=== PATIENT | female | born 1970 | race African-American/Black ===

== ENCOUNTER 2017-08-02 11:41 | Emergency (ER) | payer MEDICARE ==
[~2017-08-02 11:41] MED LIST: CLOB10TA PO
[2017-08-02 12:15] VITALS: BP 128/84
[2017-08-02] MEDS ORDERED: IV NORMAL SALINE 1,000ML 1,000 ML IV SCH (12:30)
[2017-08-02 12:59] LABS: BASO % 0 % (0-3); EOS # 0.1 x10^3/uL (0.0-0.7); EOS % 2 % (0-3); HEMATOCRIT 32.7 % (36.0-47.0); HEMOGLOBIN 11.9 g/dL (12.0-15.5); LYMPH # 1.7 x10^3/uL (1.0-4.8); LYMPH % 31 % (24-48); MEAN CORPUSCULAR HEMOGLOBIN 30 pg (25-35); MEAN CORPUSCULAR HGB CONC 36 g/dL (31-37); MEAN CORPUSCULAR VOLUME 82 fL (79-100); MONO # 0.3 x10^3/uL (0.0-1.1); MONO % 5 % (0-9); NEUT # 3.5 x10^3uL (1.8-7.7); NEUT % 62 % (31-73); PLATELET COUNT 388 x10^3/uL (140-400); RED CELL DISTRIBUTION WIDTH 14.4 % (11.5-14.5); WHITE BLOOD COUNT 5.6 x10^3/uL (4.0-11.0)
[2017-08-02 13:06] LABS: POTASSIUM ISTAT 3.7 mmol/L (3.5-5.0)
[2017-08-02 13:07] LABS: HEMOGLOBIN ISTAT 10.9 gm/dL
[2017-08-02 13:26] LABS: PREG TEST PT QUAL NEGATIVE (NEG)
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
--- NOTE | 2017-08-02 13:54 | RAD ---
One or more of the following individualized dose reduction techniques were utilized for this examination: 1. Automated exposure control 2. Adjustment of the mA and/or kV according to patient size 3. Use of iterative reconstruction technique CT lumbar spine Axial CT images were obtained through the lumbar spine. Sagittal and coronal reconstructed images were reviewed. Uterus is generous in size. There is a cyst in the right ovary. A focal disc protrusion is not identified in this lumbar spine. Lumbar spine is in normal alignment. There is facet arthritis at L5-S1. There is no acute fracture. Impression: 1. No fractures noted in the lumbar spine. 2. Facet arthritis at L5-S1. 3. No focal disc herniation or spinal stenosis noted. 4. Right ovarian cyst.
[2017-08-02] MEDS ORDERED: HYDROcodone/APAP 7.5/325MG 1 TAB TABLET PO ONE (14:00)
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
[2017-08-02] MEDS ORDERED: METH4TAB2 PO (15:12)
[2017-08-02] MEDS ORDERED: CYCL-331 PO (15:12)
== END 2017-08-02 15:28 | disposition home or self-care (01) ==
LOC: ER 11:41
DX: M54.5 Low back pain (principal); G89.29 Other chronic pain; M25.551 Pain in right hip; G43.909 Migraine, unspecified, not intractable, without status migrainosus; G40.909 Epilepsy, unspecified, not intractable, without status epilepticus; Z88.4 Allergy status to anesthetic agent; V59.59XA Passenger in pick-up truck or van injured in collision with other motor vehicles in traffic accident, initial encounter; Y93.89 Activity, other specified; Y92.89 Other specified places as the place of occurrence of the external cause; Y99.8 Other external cause status
CPT/HCPCS: 36415; 70450; 72125; 72131; 80047; 83735; 84703; 85025; 99285-25

== ENCOUNTER 2018-09-13 12:08 | Emergency (ER) | payer SELFPAY ==
[~2018-09-13] VITALS: Ht 172.7 cm; Wt 74.8 kg
[~2018-09-13 12:08] MED LIST changes: +CYCL-331 PO; +METH4TAB2 PO
[2018-09-13 12:20] VITALS: BP 103/69
[2018-09-13] MEDS ORDERED: IV NORMAL SALINE 1,000ML 1,000 ML IV ONE (12:30)
[2018-09-13 12:40] LABS: BASO # 0.1 x10^3/uL (0.0-0.2); BASO % 2 % (0-3); EOS # 0.2 x10^3/uL (0.0-0.7); EOS % 3 % (0-3); HEMATOCRIT 36.8 % (36.0-47.0); LYMPH # 1.8 x10^3/uL (1.0-4.8); LYMPH % 33 % (24-48); MEAN CORPUSCULAR HEMOGLOBIN 30 pg (25-35); MEAN CORPUSCULAR HGB CONC 36 g/dL (31-37); MEAN CORPUSCULAR VOLUME 83 fL (79-100); MONO # 0.3 x10^3/uL (0.0-1.1); MONO % 6 % (0-9); NEUT # 3.1 x10^3uL (1.8-7.7); NEUT % 58 % (31-73); PLATELET COUNT 417 x10^3/uL (140-400); RED BLOOD COUNT 4.42 x10^6/uL (3.50-5.40); WHITE BLOOD COUNT 5.4 x10^3/uL (4.0-11.0)
[2018-09-13 12:46] LABS: ALBUMIN 3.8 g/dL (3.4-5.0); CALCIUM 8.7 mg/dL (8.5-10.1); CREATININE 1.1 mg/dL (0.6-1.0); GFR 64.7; POTASSIUM 3.9 mmol/L (3.5-5.1); TOTAL BILIRUBIN 0.5 mg/dL (0.2-1.0); TOTAL PROTEIN 7.6 g/dL (6.4-8.2)
--- NOTE | 2018-09-13 12:47 | PHYS DOC ---
Past History Past Medical History: Gallstones, Migraines, Seizure Past Surgical History: Cholecystectomy, Other Smoking: Non-smoker Alcohol Use: None Drug Use: None Adult General Chief Complaint Chief Complaint: SEIZURE HPI HPI 48-year-old female presents via EMS with a seizure. The patient was at [facility] this morning she began have a seizure. This was a witnessed seizure. On arrival to the ED the patient is sleepy and still post ictal. She has a history of seizures. She is on seizure medication and followed by a neurologist at . After about an hour, the patient woke up and became more able to answer questions. 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 She has she seizures every month around the time of her menses. She takes medication and also has a stimulator to try to prevent these. She tells me that she remembers the events. She was at [facility] when she felt "a flash come over me" and she tried to activate her stimulator. She then went down to the ground and new that she was having a seizure. She remains aware but is unable to communicate. She states remembering the ambulance ride and lying in the emergency room bed. She is a bit tearful at this time. She denies any injuries or pain. He has not been feeling ill lately. She denies fever or chills. Review of Systems Review of Systems Constitutional: Denies fever or chills [] Eyes: Denies change in visual acuity, redness, or eye pain [] HENT: Denies nasal congestion or sore throat [] Respiratory: Denies cough or shortness of breath [] Cardiovascular: No additional information not addressed in HPI [] GI: Denies abdominal pain, nausea, vomiting, bloody stools or diarrhea [] : Denies dysuria or hematuria [] Musculoskeletal: Denies back pain or joint pain [] Integument: Denies rash or skin lesions [] Neurologic: Seizure[] Endocrine: Denies polyuria or polydipsia [] All other systems were reviewed and found to be within normal limits, except as documented in this note. Current Medications Current Medications Current Medications Medications (Trade) Dose Ordered Sig/Loly Start Time Stop Time Status Last Admin Dose Admin Sodium Chloride 1,000 ml @ 1,000 mls/hr 1X ONCE 09/13/18 12:30 09/13/18 13:29 09/13/18 12:41 1,000 MLS/HR Allergies Allergies Allergies Coded Allergies Type Severity Reaction Last Updated Verified procaine Allergy Intermediate SHAKES 08/02/17 Yes Physical Exam Physical Exam Constitutional: Well developed, well nourished, no acute distress, non-toxic appearance. Sleepy[] HENT: Normocephalic, atraumatic, bilateral external ears normal, oropharynx moist, no oral exudates, nose normal. [] Eyes: PERRLA, EOMI, conjunctiva normal, no discharge. [] Neck: Normal range of motion, no tenderness, supple, no stridor. [] Cardiovascular:Heart rate regular rhythm, no murmur [] Lungs & Thorax: Bilateral breath sounds clear to auscultation [] Abdomen: Bowel sounds normal, soft, no tenderness, no masses, no pulsatile masses. [] Skin: Warm, dry, no erythema, no rash. [] Back: No tenderness, no CVA tenderness. [] Extremities: No tenderness, no cyanosis, no clubbing, ROM intact, no edema. [] Neurologic: Alert and oriented X 3, normal motor function, normal sensory function, no focal deficits noted. Able to answer basic questions.[] Psychologic: Affect anxious, judgement normal, mood normal. [] Current Patient Data Vital Signs Vital Signs Date Time Temp Pulse Resp B/P (MAP) Pulse Ox O2 Delivery O2 Flow Rate FiO2 09/13/18 12:20 84 17 100 Room Air Lab Results Laboratory Tests Test 09/13/18 12:09 White Blood Count 5.4 x10^3/uL (4.0-11.0) Red Blood Count 4.42 x10^6/uL (3.50-5.40) Hemoglobin 13.0 g/dL (12.0-15.5) Hematocrit 36.8 % (36.0-47.0) Mean Corpuscular Volume 83 fL (79-100) Mean Corpuscular Hemoglobin 30 pg (25-35) Mean Corpuscular Hemoglobin Concent 36 g/dL (31-37) Red Cell Distribution Width 15.0 % (11.5-14.5) H Platelet Count 417 x10^3/uL (140-400) H Neutrophils (%) (Auto) 58 % (31-73) Lymphocytes (%) (Auto) 33 % (24-48) Monocytes (%) (Auto) 6 % (0-9) Eosinophils (%) (Auto) 3 % (0-3) Basophils (%) (Auto) 2 % (0-3) Neutrophils # (Auto) 3.1 x10^3uL (1.8-7.7) Lymphocytes # (Auto) 1.8 x10^3/uL (1.0-4.8) Monocytes # (Auto) 0.3 x10^3/uL (0.0-1.1) Eosinophils # (Auto) 0.2 x10^3/uL (0.0-0.7) Basophils # (Auto) 0.1 x10^3/uL (0.0-0.2) EKG EKG [] Radiology/Procedures Radiology/Procedures [] Course & Med Decision Making Course & Med Decision Making Pertinent Labs and Imaging studies reviewed. (See chart for details) The patient's labs are unremarkable. We gave her 1 L normal saline. Her vitals remained stable throughout her stay in the emergency room. Upon further conversation with the patient, it sounds like this is a chronic condition that has been evaluated multiple times. She sees a specialist at [facility]. She tells me that when she has these episodes they do not increase her meds or add on additional medication. It does not improve her situation and their side effects. At this time she has a headache which she says is typical after her seizures. She is feeling fine otherwise. She would like to go home. On her way back from going to the restroom, the patient complained of a sharp pain in the left side of her head. She was in a wheelchair and then became unable to answer questions. She had mild head nodding motions. She appears to be having another seizure. We will give 2 mg of Ativan IV. The patient's urinalysis is unremarkable. Her urine drug screen is positive for benzos as expected and negative for everything else. I discussed the case with , neurologist at . He did not recommend any additional treatment or change in her regimen. He was willing to accept the patient for transfer if she did not return to baseline. He also stated that he did not feel that it was absolutely necessary. All of her labs were unremarkable. The patient has returned to baseline at this time. She is feeling much better. She has had no further episodes. She would like to go home. She is stable for discharge at this time. [] Greater than 35 minutes of critical care time was spent on this patient exclusive of other billable procedures. Dragon Disclaimer Dragon Disclaimer This electronic medical record was generated, in whole or in part, using a voice recognition dictation system. Departure Departure: Referrals: MARISA DISLA MD (PCP) KATIA FLORES DO Sep 13, 2018 12:47
[2018-09-13] MEDS ORDERED: LORazepam 2 MG/ML VIAL IV ONE (14:00)
[2018-09-13 14:12] LABS: BARBITURATES NEG (NEG); BENZODIAZEPINES POS (NEG); CANNABINOIDS NEG (NEG); COCAINE NEG (NEG); METHADONE NEG (NEG); OPIATES NEG (NEG); PHENCYCLIDINE NEG (NEG)
[2018-09-13 14:13] LABS: AMPHETAMINE/METHAMPHETAMINE NEG (NEG)
== END 2018-09-13 16:30 | disposition home or self-care (01) ==
LOC: ER 12:08
DX: R56.9 Unspecified convulsions (principal); R51 Headache; G43.909 Migraine, unspecified, not intractable, without status migrainosus; Z88.4 Allergy status to anesthetic agent
CPT/HCPCS: 36415; 80053; 80307; 83735; 85025; 96374; 99284; J2060; J7030